=== PATIENT | male | born 1965 | race American Indian/Alaskan Native ===

== ENCOUNTER 2017-12-05 11:07 | Emergency (ER) | payer MEDICAID ==
[2017-12-05 11:14] VITALS: BP 107/80; PULSE 89; RESP 18; TEMP 97.9; O2SAT 97
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
== END 2017-12-05 13:29 | disposition home or self-care (01) ==
LOC: EDUNIT#
PROC: 0HQ1XZZ Repair Face Skin, External Approach (ICD-10-PCS; principal; 2017-12-05)
PROC: 0HQ0XZZ Repair Scalp Skin, External Approach (ICD-10-PCS; 2017-12-05)
DX: S01.01XA Laceration without foreign body of scalp, initial encounter (principal); S01.81XA Laceration without foreign body of other part of head, initial encounter; F10.920 Alcohol use, unspecified with intoxication, uncomplicated; Y09 Assault by unspecified means

== ENCOUNTER 2018-04-10 16:35 | Emergency (ER) | payer MEDICAID ==
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
[2018-04-10] MEDS ORDERED: TDAP ADULT 0.5 ML INJ (BOOSTRIX) IM ONE (16:44)
[2018-04-10] MEDS ORDERED: BACITRACIN OINTMENT 1 PACKET TP ONE (16:51)
[2018-04-10] MEDS ORDERED: SKIN ADHESIVE (DERMABOND) 1 EACH TP ONE (17:10)
[2018-04-10 18:15] VITALS: BP 136/84
== END 2018-04-10 18:15 ==
LOC: EDUNIT# → EEVIPCON 16:35
PROC: 0CQ4XZZ Repair Buccal Mucosa, External Approach (ICD-10-PCS; principal; 2018-04-10)
PROC: 0HQ1XZZ Repair Face Skin, External Approach (ICD-10-PCS; principal; 2018-04-10)
DX: S05.12XA Contusion of eyeball and orbital tissues, left eye, initial encounter (principal); S01.81XA Laceration without foreign body of other part of head, initial encounter; S01.511A Laceration without foreign body of lip, initial encounter; Z23 Encounter for immunization; Y04.8XXA Assault by other bodily force, initial encounter; Y99.8 Other external cause status; Y93.89 Activity, other specified

== ENCOUNTER 2019-04-18 20:46 | Emergency (ER) | payer MEDICAID ==
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
[2019-04-19] MEDS ORDERED: CHLORDIAZEPOXIDE 25MG PREPK#6 BTL TAKEHOME ONE ×2 (03:21→03:30)
[2019-04-19 03:23] VITALS: BP 146/92
== END 2019-04-19 03:38 | disposition home or self-care (01) ==
LOC: EDUNIT#
DX: F10.920 Alcohol use, unspecified with intoxication, uncomplicated (principal)

== ENCOUNTER 2019-04-19 23:02 | Emergency (ER) | payer MEDICAID ==
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
[2019-04-20 06:27] VITALS: BP 119/83
== END 2019-04-20 06:10 | disposition home or self-care (01) ==
LOC: EDUNIT#
DX: R41.82 Altered mental status, unspecified (principal); F10.221 Alcohol dependence with intoxication delirium; Z59.0 Homelessness

== ENCOUNTER 2019-05-02 15:06 | Emergency (ER) | payer MEDICAID | END 2019-05-02 21:00 | disposition home or self-care (01) ==

== ENCOUNTER 2019-05-13 02:59 | Emergency (ER) | payer MEDICAID | END 2019-05-13 05:58 | disposition home or self-care (01) ==

== ENCOUNTER 2019-05-30 15:15 | Emergency (ER) | payer MEDICAID | END 2019-05-30 17:16 | disposition home or self-care (01) ==